=== PATIENT | male | born 1965 | race Hispanic/Latino ===

== ENCOUNTER 2024-03-22 09:14 | Day surgery (SDC) | payer OTHER ==
[2024-03-20 09:55] VITALS: BP 141/79; PULSE 57; RESP 17
[2024-03-20 10:08] LABS: BASOPHILS # (AUTO) 0.04 K/uL (0.00-0.20); BASOPHILS % (AUTO) 0.9 % (0.0-5.0); EOSINOPHILS # (AUTO) 0.13 K/uL (0.00-0.70); EOSINOPHILS % (AUTO) 2.9 % (0.0-8.0); HEMATOCRIT 42.2 % (42-54); IMMATURE GRANULOCYTE ABSOLUTE 0.02 K/uL (0-1); LYMPHOCYTES # (AUTO) 1.4 K/uL (1.0-4.8); LYMPHOCYTES % (AUTO) 31.1 % (21.0-51.0); MEAN CORPUSCULAR HEMOGLOBIN 30.6 pg (27.0-33.0); MEAN CORPUSCULAR HGB CONC 33.4 g/dL (32.0-36.0); MEAN CORPUSCULAR VOLUME 91.5 fL (79-99); MONOCYTES # (AUTO) 0.4 K/uL (0.1-1.0); MONOCYTES % (AUTO) 8.9 % (3.0-13.0); NEUTROPHILS # (AUTO) 2.5 K/uL (1.8-7.7); NEUTROPHILS % (AUTO) 55.8 % (40.0-77.0); PLATELET COUNT (AUTO) 252 K/uL (130-400); RED BLOOD CELL COUNT(AUTO) 4.61 MIL/uL (4.50-6.20); RED CELL DISTRIBUTION WIDTH 12.5 % (11.0-15.5); WHITE BLOOD COUNT (AUTO) 4.5 K/uL (4.8-10.8)
[2024-03-20 10:18] LABS: CREATININE 0.9 mg/dL (0.5-1.3); POTASSIUM 4.3 mmol/L (3.5-5.1)
[~2024-03-22] VITALS: Ht 167.6 cm; Wt 83.2 kg
[2024-03-22] VITALS (16 sets, daily range): BP systolic 126–145; BP diastolic 78–91; PULSE 62–75; RESP 14–20
[~2024-03-22 09:14] MED LIST: ATEN25TA PO; CHOL500062 PO; CYAN250010 PO; MAGN500C4 PO; MIRA50TA PO; PYRI100L2 PO; TADA5TAB5 PO; TERB250T89 PO; UBID400C8 PO; VITAMIN B2 PO
[2024-03-22] MEDS ORDERED: MIDAZOLAM HCL 1 MG/ML 2ML VIAL ONE (11:36)
[2024-03-22] MEDS ORDERED: FENTANYL CITRATE PF 50 MCG/1 ML 5ML AMP IV ONE (11:37)
[2024-03-22] MEDS ORDERED: ROCURONIUM BROMIDE 10MG/1ML 5ML VL ONE (11:38)
[2024-03-22] MEDS ORDERED: LIDOCAINE PF 100MG/5ML (2%) SYRINGE 5ML ONE (11:38)
[2024-03-22] MEDS ORDERED: EPHEDRINE SULFATE 50 MG/ML AMPULE ONE (11:39)
[2024-03-22] MEDS ORDERED: PROPOFOL 10 MG/ML 20ML VIAL IV ONE (11:43)
[2024-03-22] MEDS: CEFTRIAXONE 1G VIAL ONE (12:11)
[2024-03-22] MEDS ORDERED: DEXAMETHASONE SOD PHOSPHATE 10MG/ML 1ML VIAL ONE (12:13)
[2024-03-22] MEDS ORDERED: ONDANSETRON 4MG INJ ONE (12:13)
[2024-03-22] MEDS ORDERED: NEOSTIGMINE METHYLSULFATE 1MG/ML IV ONE (12:13)
[2024-03-22] MEDS ORDERED: GLYCOPYRROLATE 0.2 MG/ML 5 ML VIAL ONE (12:13)
[2024-03-22] MEDS: LACTATED RINGERS 1000ML 1,000 ML IV ONE (12:57)
[2024-03-22] MEDS: PHENAZOPYRIDINE HCL 200 MG TABLET PO ONE (14:38)
== END 2024-03-22 15:00 | disposition home or self-care (01) ==
LOC: DAH 09:14
PROVIDERS: ATTEND Urology
DX: N40.1 Benign prostatic hyperplasia with lower urinary tract symptoms (principal); R39.15 Urgency of urination; R35.1 Nocturia; N32.89 Other specified disorders of bladder; N35.919 Unspecified urethral stricture, male, unspecified site; Z79.899 Other long term (current) drug therapy; Z79.01 Long term (current) use of anticoagulants
CPT/HCPCS: 80048; 85025; 36415; 52648; A6260; A4663; J7030; J7120 ×2; A4344; A4354; A4340; J3010; J1100; J3490 ×3; J2001; J0696; J2250; J2704; J2405; J2710; A4358; A4930 ×2; A4215; A4223; A4222; A4221; A4600; A4510

== ENCOUNTER 2025-06-18 06:41 | Day surgery (SDC) | payer OTHER ==
[~2025-06-18] VITALS: Ht 175.3 cm; Wt 86.2 kg
[2025-06-18] VITALS (10 sets, daily range): BP systolic 117–159; BP diastolic 73–88; PULSE 57–72; RESP 15–18; TEMP 97.1–98.4
[2025-06-18] MEDS ORDERED: OMEP20CA12 PO (08:36)
[2025-06-18] MEDS: 0.9%NACL 1000ML 1,000 ML IV ONE (08:38)
== END 2025-06-18 12:32 | disposition home or self-care (01) ==
LOC: ENDO 06:41 → DAH 07:41 → ENDO 12:32
PROVIDERS: ATTEND Internal Medicine Gastroenterology
DX: R12 Heartburn (principal); K29.50 Unspecified chronic gastritis without bleeding; K76.0 Fatty (change of) liver, not elsewhere classified; I10 Essential (primary) hypertension; Z79.899 Other long term (current) drug therapy; Z80.0 Family history of malignant neoplasm of digestive organs; Z98.890 Other specified postprocedural states
CPT/HCPCS: 43239; J7030 ×2; J2704; J2405; A4620; A4215 ×2; A4223; A4657; A7002; A4222; A4221; A4663; A4606; J3490